=== PATIENT | female | born 1990 ===

== ENCOUNTER 2017-09-25 21:43 | Emergency (ER) | payer OTHER ==
[2017-09-25 21:54] VITALS: BP 137/92
[2017-09-25] MEDS ORDERED: VITAMIN B-121000 MC3 PO (21:55)
[2017-09-25] MEDS ORDERED: MULTIVITAMINS1 EAC9 PO (21:55)
[2017-09-25 23:54] LABS: ABSOLUTE BASOPHIL COUNT 0 /CUMM (0.0-0.2); ABSOLUTE EOSINOPHIL COUNT 0.2 /CUMM (0.0-0.7); ABSOLUTE GRANULOCYTE CT 5.3 /CUMM (1.4-6.5); ABSOLUTE LYMPH COUNT 2.6 /CUMM (1.2-3.4); ABSOLUTE MONOCYTE COUNT 0.4 /CUMM (0.10-0.60); BASOPHIL % 0.3 % (0.0-2.0); EOSINOPHIL % 2.1 % (0-5); GRANULOCYTE % 62.5 % (42.2-75.2); HEMATOCRIT 37.2 % (37-47); MEAN CORPUSCULAR HGB 30.6 PG (27.0-31.0); MEAN CORPUSCULAR VOLUME 92.8 FL (81.0-99.0); PLATELET COUNT 332 /CUMM (130-400); RBC DISTRIBUTION WIDTH 13.3 % (11.5-14.5); RED BLOOD CELL CT 4.01 /CUMM (4.20-5.40); WHITE BLOOD CELL COUNT 8.4 /CUMM (4.8-10.8)
--- NOTE | 2017-09-26 00:04 | ED GI/GU/ABDOMINAL COMPLAINT ---
History of Present Illness General Chief Complaint: Abdominal Pain/Flank Pain Stated Complaint: SOB, FLANK PAIN Source: patient Exam Limitations: no limitations Vital Signs & Intake/Output Vital Signs & Intake/Output Vital Signs Date Time Temp Pulse Resp B/P B/P Pulse O2 O2 Flow FiO2 Mean Ox Delivery Rate 09/25 2154 98.7 86 22 137/92 98 ED Intake and Output 09/26 0000 09/25 1200 Intake Total 0 Output Total Balance 0 Intake, Oral 0 Allergies Coded Allergies: No Known Allergies (09/22/17) Reconcile Medications Cyanocobalamin (Vitamin B-12) 1,000 MCG TABLET 1 TAB PO DAILY VITAMIN ( Reported) Multiple Vitamin (Multivitamins) 1 EACH TABLET 1 TAB PO DAILY VITAMIN ( Reported) Triage Note: PER PT SEEN ON THURSDAY FOR RECTAL BLEEDING ALL CHECKED OUT OK, PAIN TO ABD CONTINUED X 2 DAYS HX OF GI ISSUES TODAY CO ABD PAIN TAKING OVER "TORSO" AND RT SHOULDER PAINNO MORE RECTAL BLEEDING, BUT LIGHT HEADED D/T PAIN LMP 09/17/17 Triage Nurses Notes Reviewed? yes ? N Is pt currently ? No HPI: 27F no significant PMh with 2 days of generealized abdominal pain and right lower back pain. Denies fever, chills ,chest pain, SOB, dysuria. No trauma or inciting event. Loose stools for 2 days. No recent travel or sisck contacts. No other complaints. Past History Travel History Traveled to [place] past 21 day No Medical History Any Pertinent Medical History? see below for history Neurological: NONE EENT: NONE Cardiovascular: NONE Respiratory: NONE Gastrointestinal: GI ISSUES Hepatic: NONE Renal: NONE Musculoskeletal: NONE Psychiatric: NONE Endocrine: NONE Blood Disorders: NONE Cancer(s): NONE Surgical History Surgical History: No abdominal surgeries Psychosocial History What is your primary language Welsh Tobacco Use: Never used Family History Hx Contributory? No Review of Systems Review of Systems Constitutional: Reports: no symptoms. EENTM: Reports: no symptoms. Respiratory: Reports: no symptoms. Cardiovascular: Reports: no symptoms. GI: Reports: no symptoms. Genitourinary: Reports: no symptoms. Musculoskeletal: Reports: no symptoms. Skin: Reports: no symptoms. Neurological/Psychological: Reports: no symptoms. Hematologic/Endocrine: Reports: no symptoms. Immunologic/Allergic: Reports: no symptoms. All Other Systems: Reviewed and Negative Physical Exam Physical Exam General Appearance: well developed/nourished, no apparent distress Head: atraumatic, normal appearance Eyes: Bilateral: normal appearance. Ears, Nose, Throat, Mouth: moist mucous membrane Neck: normal inspection, full range of motion Respiratory: normal breath sounds, quiet respiration Cardiovascular: regular rate/rhythm Gastrointestinal: soft, diffusely tender Back: normal inspection, normal range of motion Extremities: normal range of motion Neurologic/Psych: awake, alert, oriented x 3, normal mood/affect Skin: intact, normal color, warm/dry Core Measures ACS in differential dx? No Sepsis Present: No Sepsis Focused Exam Completed? No Progress Differential Diagnosis: AAA, AMI, appendicitis, biliary colic, bowel obstruction , colon cancer, cholecystitis, diverticulitis, ectopic , endometritis, esophageal varices, gastritis, hepatitis, hernia, hemorrhoids, ischemic bowel, inflamm bowel dis, intrauterine , kidney stone, Shaylee-Radha tear, ovarian cyst, ovarian torsion, pancreatitis, PID/cervicitis, peptic ulcer, PUD/ GERD, perforated viscous, SBO, threatened AB, UTI/pyelo Plan of Care: Orders Procedure Date/time Status LIPASE 09/25 2328 Complete LACTIC ACID 09/25 2328 Complete HUMAN BETA HCG SCREEN 09/25 2328 Complete COMPREHENSIVE METABOLIC PANEL 09/25 2328 Complete CREATINE PHOSPHOKINASE 09/25 2328 Complete CBC WITHOUT DIFFERENTIAL 09/25 2328 Complete Laboratory Tests 09/26/17 0229: Lactic Acid Cancelled 09/25/17 2344: Anion Gap 7, Estimated GFR > 60, BUN/Creatinine Ratio 15.6, Glucose 94, Lactic Acid 0.7, Calcium 9.0, Total Bilirubin 0.4, AST 21, ALT 31, Alkaline Phosphatase 78, Creatine Kinase 178 H, Total Protein 6.6, Albumin 3.7, Globulin 2.9, Albumin/Globulin Ratio 1.3, Lipase 92, Total Beta HCG NEGATIVE, CBC w Diff NO MAN DIFF REQ, RBC 4.01 L, MCV 92.8, MCH 30.6, MCHC 33.0, RDW 13.3, MPV 8.0, Gran % 62.5, Lymphocytes % 30.6, Monocytes % 4.5, Eosinophils % 2.1, Basophils % 0.3, Absolute Granulocytes 5.3, Absolute Lymphocytes 2.6, Absolute Monocytes 0.4 , Absolute Eosinophils 0.2, Absolute Basophils 0 Workup negative. When further information was attempted to be elicited, patient became angry and refused to give any further information. Tried to talk to her about her symptoms and further history, however patient only wanted her IV out of her arm and for me to leave the room. I complied. Referred patient to GI and GLOBAL MANAGER for further outpatient workup, and gave instructions on warning signs and returning to ER. Diagnostic Imaging: Viewed by Me: CT Scan. Discussed w/RAD: CT Scan. Radiology Impression: PATIENT: SHAY BUENO PRESENT AGE: 27 PATIENT ACCOUNT NO: [id number] : 90 LOCATION: [facility] ORDERING PHYSICIAN: Shaina Lerma MD SERVICE DATE: 09/25/17 EXAM TYPE: CAT - CT ABD & PELVIS W/O IV CONTRAS EXAMINATION: CT ABDOMEN AND PELVIS WITHOUT CONTRAST CLINICAL INFORMATION: Left flank and severe periumbilical pain. COMPARISON: None. TECHNIQUE: Contiguous axial thin section helical images of the abdomen and pelvis were performed without oral or IV contrast. The data set was reformatted in the coronal and sagittal planes and reviewed on an independent workstation. DLP: 1115 mGy-cm. FINDINGS: There is a 3 mm nodular density adjacent to the pleura within the left lower lobe on image 105/792. The visualized lung bases are otherwise clear. The visualized portions of the heart are unremarkable. The liver is of normal size and attenuation without focal lesions nor intrahepatic biliary ductal dilation. A normal gallbladder is identified. There is no wall thickening or discernible pericholecystic fluid. The spleen, pancreas, adrenal glands are unremarkable. Both kidneys are of normal size and attenuation without hydronephrosis or nephrolithiasis. There is no abdominal free fluid. There is neither mesenteric nor retroperitoneal lymphadenopathy. Normal unopacified loops of small and large bowel are identified. A normal appendix is identified. There is no pelvic free fluid. The urinary bladder is unremarkable. There is neither pelvic nor inguinal lymphadenopathy. Bone windows: Neither sclerotic nor lytic bone lesions are identified. IMPRESSION: No evidence for acute abdominal or pelvic inflammatory or infectious processes. Normal appendix. DICTATED BY: Anibal Suarez MD DATE/ TIME DICTATED:09/26/1721 REED MAKER:ESTEFANI DATE/TIME TRANSCRIBED: 09/26/1721 CONFIDENTIAL, DO NOT COPY WITHOUT APPROPRIATE AUTHORIZATION. < Electronically signed in Other Vendor System> SIGNED BY: Anibal Suarez MD 09/26/17 0030 Initial ED EKG: none Departure Departure Disposition: HOME OR SELF CARE Condition: Stable Clinical Impression Primary Impression: Abdominal pain Qualifiers: Abdominal location: generalized Qualified Code: R10.84 - Generalized abdominal pain Referrals: Dinesh INGRAM,Alyssa Barrow MD,Tania Patient Has No Primary Care Dr (PCP/Family) Additional Instructions: Follow up with your PCP. You can follow up with a GI and GLOBAL MANAGER for further evaluation. Please try to note any dietary or stool changes. Return to ER if you notice any new or worsening symptoms. Departure Forms: Customer Survey General Discharge Information
--- NOTE | 2017-09-26 00:30 | CT SCAN REPORT ---
EXAMINATION: CT ABDOMEN AND PELVIS WITHOUT CONTRAST CLINICAL INFORMATION: Left flank and severe periumbilical pain. COMPARISON: None. TECHNIQUE: Contiguous axial thin section helical images of the abdomen and pelvis were performed without oral or IV contrast. The data set was reformatted in the coronal and sagittal planes and reviewed on an independent workstation. DLP: 1115 mGy-cm. FINDINGS: There is a 3 mm nodular density adjacent to the pleura within the left lower lobe on image 105/792. The visualized lung bases are otherwise clear. The visualized portions of the heart are unremarkable. The liver is of normal size and attenuation without focal lesions nor intrahepatic biliary ductal dilation. A normal gallbladder is identified. There is no wall thickening or discernible pericholecystic fluid. The spleen, pancreas, adrenal glands are unremarkable. Both kidneys are of normal size and attenuation without hydronephrosis or nephrolithiasis. There is no abdominal free fluid. There is neither mesenteric nor retroperitoneal lymphadenopathy. Normal unopacified loops of small and large bowel are identified. A normal appendix is identified. There is no pelvic free fluid. The urinary bladder is unremarkable. There is neither pelvic nor inguinal lymphadenopathy. Bone windows: Neither sclerotic nor lytic bone lesions are identified. IMPRESSION: No evidence for acute abdominal or pelvic inflammatory or infectious processes. Normal appendix.
== END 2017-09-26 01:21 ==
LOC: ERH 21:43
PROVIDERS: Internal Medicine
DX: R10.84 Generalized abdominal pain (principal)
CPT/HCPCS: 74176